=== PATIENT | male | born 1995 | race Caucasian/White ===

== ENCOUNTER → 2021-04-30 | Emergency (ER) | payer MEDICAID ==
[~2021-04-30] VITALS: Ht 165.1 cm; Wt 68.0 kg
[~2021-04-30] MED LIST: CARB15DR12 LEFT EAR
[2021-04-30 18:54] VITALS: BP 129/78
--- NOTE | 2021-04-30 19:29 | NUR ---
Patient discharged to home in stable condition. Written and verbal after care instructions given. Patient verbalizes understanding of instruction.
== END | disposition home or self-care (01) ==
LOC: ER 19:31
DX: H61.22 Impacted cerumen, left ear (principal); Z79.899 Other long term (current) drug therapy